=== PATIENT | female | born 1935 | race Caucasian/White ===

== ENCOUNTER → 2016-11-13 | Outpatient (CLI) | payer OTHER, BC ==
[~2016-11-13] MED LIST: ALBU2SYP9 INH; ASCA500 PO; ASPEC81 PO; CALC600T9 PO; CINN500T PO; COEN1CAP17 PO; CRAN400C PO; CYAN100T PO; GLUCTAB7 PO; ISOS30TA51 PO; METO25TA56 PO; MOME16.7 INH; MULT-506 PO; OMEG10007 PO; POLYSOL OPB; PRLSR20 PO; ROSU40TA PO
== END | disposition home or self-care (01) ==
LOC: C.RDSM 10:40
PROVIDERS: ATTEND Physical Medicine & Rehabilitation
DX: M79.606 Pain in leg, unspecified (principal)

== ENCOUNTER → 2017-04-15 | Day surgery (SDC) | payer OTHER, BC ==
[2017-02-19 14:50] VITALS: BMI 37.0
[2017-03-27 11:50] VITALS: Ht 152.4 cm; Wt 86.4 kg
[~2017-04-15] VITALS: Ht 152.4 cm; Wt 86.4 kg
[~2017-04-15] MED LIST changes: +IOPAMIDOL INJ 61% 15 ML VIAL ONE; +LIDOCAINE HCL 1% MPF 5 ML VIAL ONE; +SODIUM CHLORIDE 0.9% INJ 10 ML VIAL ONE
--- NOTE | 2017-04-15 13:58 | History & Physical Bridge - [place] ---
H&P Re-Evaluation Bridge Note: I have examined the patient, reviewed the History & Physical and in the interval since the performance of the History & Physical I have noted the following changes of clinical significance: No changes noted
[2017-04-15 14:27] VITALS: BP 122/71; PULSE 61; TEMP 37.3; O2SAT 96
--- NOTE | 2017-04-15 14:34 | Discharge Instructions ---
Discharge Instructions Date of Service Apr 15, 2017. Visit Reason for Visit: Lumbar Radiculopathy Discharge Discharge Diagnosis / Problem: low back pain Discharge Goals Goal(s): Decrease discomfort, Improve function Medications Stopped Medications Name(s): ASA and Nsaids held x 4 days Activity Recommendations Activity Limitations: resume your previous activity Anesthesia . Post Anesthesia Instructions: If you have had General Anesthesia or IV Sedation: * Do not drive today. * Resume driving when surgeon permits. * Do not make important decisions or sign legal documents today. * Call surgeon for: 1. Temperature elevations greater than 101 degrees F. 2. Uncontrollable pain. 3. Excessive bleeding. 4. Persistent nausea and vomiting. 5. Medication intolerance (nausea, vomiting or rash). * For nausea and vomiting use only clear liquids such as: tea, soda, bouillon until nausea subsides, then gradually increase diet as tolerated. * If you have any concerns or questions, call your surgeon's office. If physician is unavailable and it is an emergency, call 911 or go to the nearest emergency room. . Diet Recommendations Recommended Home Diet: resume previous diet Procedures Procedures Performed: LUMBAR EPIDURAL STEROID INJECTION Pending Studies Studies pending at discharge: no Medical Emergencies . Who to Call and When: Medical Emergencies: If at any time you feel your situation is an emergency, please call 911 immediately. . Non-Emergent Contact Non-Emergency issues call your: Specialist . . "Provider Documentation" section prepared by Samir Avila. .
--- NOTE | 2017-04-15 15:05 | OPERATIVE REPORT ---
DATE OF OPERATION: 04/15/2017 PREOPERATIVE DIAGNOSIS: Lumbar spinal stenosis with neurogenic claudication. POSTOPERATIVE DIAGNOSIS: Same. PROCEDURE: Left paramedian L5-S1 intralaminar epidural steroid injection under fluoroscopic guidance. INDICATIONS: The patient is an 82-year-old white female who has received epidurals in the past with some improvement and presents today for an injection to provide her with improvement of her neurogenic claudication symptoms, which are functionally limiting to her. PHYSICAL EXAMINATION: Pleasant female seated comfortably. She has normal motor and sensory examination of her lower extremities with negative seated straight leg raises. CONSENT: Verbal and written consent was obtained from the patient. Risks and benefits were reviewed. Risks include, but are not limited to abscess, epidural abscess, epidural hematoma, allergic reaction, and dural puncture. The patient wishes to proceed. DESCRIPTION OF PROCEDURE: The patient was taken back to the special procedures room of the [facility], where she was maintained in a prone position. Backside was cleansed with Betadine x3 and a dry sterile dressing was applied. Fluoroscope was used to identify the L5-S1 space. Overlying skin was anesthetized with 4 mL of lidocaine 1% with a 25 gauge 1-1/2 inch needle on the left side. She then underwent placement of a 22-gauge 4-1/4 inch Tuohy needle into the left L5-S1 intralaminar space at a depth of 10 cm. Isovue-300 contrast 1 mL was injected in which demonstrated epidural uptake pattern and this was confirmed with both AP and lateral views. She then underwent injection after negative aspiration of 40 mg of Depo-Medrol and 4 mL of preservative free sodium chloride. Injection was well tolerated. DISPOSITION: 1. The patient was taken out into the discharge recovery area, where she will be discharged home once discharge criteria have been met. 2. Follow up in the [facility] office in 2-4 weeks. I attest to the content of the Intraoperative Record and any orders documented therein. Any exception s are noted below.
== END | disposition home or self-care (01) ==
LOC: X.SURG 12:34
PROVIDERS: ATTEND Physical Medicine & Rehabilitation
DX: M48.06 Spinal stenosis, lumbar region (principal)

== ENCOUNTER → 2017-12-09 | Day surgery (SDC) | payer OTHER, BC ==
[2017-11-18 09:32] VITALS: Ht 152.4 cm; Wt 83.2 kg
[~2017-12-09] VITALS: Ht 152.4 cm; Wt 83.2 kg
[~2017-12-09] MED LIST changes: -ASPEC81 PO; +ASPI81TA28 PO; +ATOR10TA82 PO; -ISOS30TA51 PO; +ISR/30 PO; -ROSU40TA PO
--- NOTE | 2017-12-09 15:29 | [facility] Post Operative Brief Note ---
Immediate Operative Summary Operative Date Dec 09, 2017. Pre-Operative Diagnosis LUMBAR SPINAL STENOSIS WITH RADICULOPATHY Post-Operative Diagnosis SAME Procedure(s) Performed LUMBAR EPIDURA; STEROID INJECTION Surgeon DR. Bibi COUGHLIN Textile Technical Officer Surgeon(s) NONE Estimated Blood Loss 0 Findings Consistent with Post-Op Diagnosis Specimens NA Drains None Anesthesia Type Local Complication(s) none Disposition Disposition:
[2017-12-09 15:30] VITALS: TEMP 36.8
--- NOTE | 2017-12-09 15:30 | Discharge Instructions ---
Discharge Instructions Date of Service Dec 09, 2017. Visit Reason for Visit: Lumbar Radiculopathy Discharge Discharge Diagnosis / Problem: LEG PAIN Discharge Goals Goal(s): Decrease discomfort, Improve function Medications Stopped Medications Name(s): see anticoag Activity Recommendations Activity Limitations: resume your previous activity Anesthesia . Post Anesthesia Instructions: If you have had General Anesthesia or IV Sedation: * Do not drive today. * Resume driving when surgeon permits. * Do not make important decisions or sign legal documents today. * Call surgeon for: 1. Temperature elevations greater than 101 degrees F. 2. Uncontrollable pain. 3. Excessive bleeding. 4. Persistent nausea and vomiting. 5. Medication intolerance (nausea, vomiting or rash). * For nausea and vomiting use only clear liquids such as: tea, soda, bouillon until nausea subsides, then gradually increase diet as tolerated. * If you have any concerns or questions, call your surgeon's office. If physician is unavailable and it is an emergency, call 911 or go to the nearest emergency room. . Diet Recommendations Recommended Home Diet: resume previous diet Procedures Procedures Performed: LUMBAR EPIDURA; STEROID INJECTION Pending Studies Studies pending at discharge: no Medical Emergencies . Who to Call and When: Medical Emergencies: If at any time you feel your situation is an emergency, please call 911 immediately. . Non-Emergent Contact Non-Emergency issues call your: Specialist . . "Provider Documentation" section prepared by Samir Avila. .
[2017-12-09 15:55] VITALS: BP 137/82; PULSE 79; O2SAT 96
--- NOTE | 2017-12-09 16:20 | OPERATIVE REPORT ---
DATE OF OPERATION: 12/09/2017 PREOPERATIVE DIAGNOSES: Severe lumbar spinal stenosis with bilateral lower extremity neurogenic claudication and radiculopathy. POSTOPERATIVE DIAGNOSES: Same. PROCEDURE: Left paramedian L5-S1 intralaminar epidural steroid injection under fluoroscopic guidance. INDICATIONS: The patient is an 82-year-old white female who had received epidurals with good relief. She has an upcoming trip to [place] next month and wants to get an epidural to help her, so that she is able to ambulate and get around without significant limitations. PHYSICAL EXAMINATION: Pleasant female seated comfortably. She is without any focal weakness. She has intact sensation. Negative seated straight leg raises. Ambulates with a slightly forward flexed posture. CONSENT: Verbal and written consent was obtained from the patient. Risks and benefits were reviewed. Risks include, but are not limited to epidural hematoma, epidural abscess, dural puncture, spinal headache and allergic reaction. The patient wishes to proceed. DESCRIPTION OF PROCEDURE: The patient was taken back into the special procedures room of the [facility]. She was maintained in a prone position. Backside was cleansed with Betadine x3 and a dry sterile dressing was applied. Fluoroscope was used to identify the L5-S1 intralaminar space and the overlying skin was anesthetized with 4 mL of lidocaine 1% with a 25-gauge 1-1/2 inch needle. A 22-gauge 3-1/2 inch Tuohy needle was then directed down towards the intralaminar space. It was advanced under lateral fluoroscopic guidance and loss of resistance was noted at a depth of 8+ cm. Isovue-300 contrast 1 mL was injected in which demonstrated predominance epidural uptake. There appeared to be some thecal spreading. It was retracted a few millimeters and reinjected. No additional thecal spreading was noted with the second 0.5 mL of Isovue 300 contrast. She underwent injection after negative aspiration of 40 mg Depo-Medrol and 4 mL of preservative free sodium chloride. DISPOSITION: 1. The patient was taken out into the discharge recovery area, where she will be discharged home once discharge criteria have been met. 2. Follow up in the [facility] office in 2-4 weeks. I attest to the content of the Intraoperative Record and any orders documented therein. Any exception s are noted below.
== END | disposition home or self-care (01) ==
LOC: X.SURG 14:04
PROVIDERS: ATTEND Physical Medicine & Rehabilitation
DX: M48.062 Spinal stenosis, lumbar region with neurogenic claudication (principal); M54.16 Radiculopathy, lumbar region; Z79.82 Long term (current) use of aspirin; Z79.899 Other long term (current) drug therapy